=== PATIENT | male | born 1980 | race Caucasian/White ===

== ENCOUNTER 2020-11-04 11:15 | Emergency (ER) | payer OTHER ==
[2020-11-04 11:40] VITALS: BP 144/77; PULSE 98; TEMP 97.9; BMI 32.5
[2020-11-04] MEDS ORDERED: ACETAMINOPHEN 500 MG TABLET (FP) PO ONE (12:50)
[2020-11-04] MEDS ORDERED: ACETAMINOPHEN 500 MG TABLET (FP) ONE (12:55)
[2020-11-04 13:32] LABS: URINE APPEARANCE CLEAR; URINE BILIRUBIN NEGATIVE (NEGATIVE); URINE COLOR YELLOW; URINE GLUCOSE (UA) NEGATIVE (NEGATIVE); URINE KETONE NEGATIVE (NEGATIVE); URINE LEUK ESTERASE NEGATIVE (NEGATIVE); URINE NITRITE NEGATIVE (NEGATIVE); URINE PROTEIN NEGATIVE (NEGATIVE); URINE UROBILINOGEN 0.2 mg/dL (0.2-1.0)
== END 2020-11-04 15:44 | disposition home or self-care (01) ==
LOC: JER 11:15
DX: N12 Tubulo-interstitial nephritis, not specified as acute or chronic (principal)
CPT/HCPCS: 76775-TC; 81003; 87086; 99284-25

== ENCOUNTER 2022-07-08 07:09 | Emergency (ER) | payer OTHER ==
[2022-07-08 07:20] VITALS: BP 135/81; PULSE 78; RESP 18; TEMP 98.4; BMI 29.5
[2022-07-08] MEDS ORDERED: KETOROLAC TROMETHAMINE 30 MG/1 ML VIAL IM ONE (07:45)
[2022-07-08] MEDS ORDERED: LIDOCAINE 5% TOPICAL PATCH TP ONE (07:45)
[2022-07-08] MEDS ORDERED: KETOROLAC TROMETHAMINE 30 MG/1 ML VIAL ONE (08:15)
[2022-07-08] MEDS ORDERED: LIDOCAINE 5% TOPICAL PATCH ONE (08:15)
[2022-07-08] MEDS ORDERED: LIDOCAINE PATCH REMOVAL MC ONE (20:00)
== END 2022-07-08 08:34 | disposition home or self-care (01) ==
LOC: JERFT 07:09 → JER 07:09 → JERFT 08:34
PROC: 3E0233Z Introduction of Anti-inflammatory into Muscle, Percutaneous Approach (ICD-10-PCS; principal; 2022-07-08)
DX: M54.50 Low back pain, unspecified (principal); X50.0XXA Overexertion from strenuous movement or load, initial encounter
CPT/HCPCS: 99284-25